=== PATIENT | male | born 1995 | race Caucasian/White ===

== ENCOUNTER 2017-05-04 20:48 | Emergency (ER) | payer BC ==
[2017-05-04 20:58] VITALS: BP 141/92
[2017-05-04] MEDS ORDERED: Acetaminophen 325 MG Tab PO ONE (21:20)
--- NOTE | 2017-05-04 21:23 | EDM.PDOC ---
ED HPI GENERAL MEDICAL PROBLEM - General Chief Complaint: Burn Stated Complaint: BURNED FINGER ON LT HAND Time Seen by Provider: 05/04/17 21:02 Source of Information: Reports: Patient, RN Notes Reviewed - History of Present Illness INITIAL COMMENTS - FREE TEXT/NARRATIVE: 21-year-old male suffered burn injury to his distal left index finger. He accidentally touched a hot muffler which apparently was attached to a motor running some type of mixer at work. Has a lot of pain. He did not know how to manage this injury and therefore presents to the ED seeking evaluation and advice. His last tetanus immunization would have been about 8 years ago. Other area of injury. Left Hand Pain Score (Numeric/FACES): 5 - Related Data Allergies Allergy/AdvReac Type Severity Reaction Status Date / Time Penicillins Allergy Hives Verified 05/04/17 20:55 Home Meds: Home Meds . [No Known Home Meds] 05/04/17 [History] Past Medical History - Past Health History Medical/Surgical History: Denies Medical/Surgical History Social & Family History - Recreational Drug Use Recreational Drug Use: No Review of Systems - Review of Systems Review Of Systems: See Below Constitutional: Reports: No Symptoms Eyes: Reports: No Symptoms Mouth/Throat: Reports: No Symptoms Respiratory: Reports: No Symptoms Cardiovascular: Denies: Chest Pain GI/Abdominal: Denies: Abdominal Pain, Nausea, Vomiting Musculoskeletal: Reports: Other (Burn injury distal left index finger) Skin: Reports: Other (Blistering area of burn injury distal left finger) Neurological: Denies: Numbness, Tingling ED EXAM, GENERAL - Physical Exam Exam: See Below General Appearance: Alert, No Apparent Distress Head: Atraumatic Neck: Supple Respiratory/Chest: No Respiratory Distress Extremities: Other (There is a small 0.5 x 1.5 cm area of burn injury distal left index finger with localized vesiculation, sensation to touch is intact. No visible injury beyond the border of vesicular injury.) Neurological: No Motor/Sensory Deficits Course - Vital Signs Last Recorded V/S: Last Vital Signs Temp 97.6 F 05/04/17 20:55 Pulse 97 05/04/17 20:55 Resp 15 05/04/17 20:55 BP 141/92 H 05/04/17 20:55 Pulse Ox 97 05/04/17 20:55 - Orders/Labs/Meds Meds: Medications Discontinued Medications Generic Name Dose Route Start Last Admin Trade Name Sal PRN Reason Stop Dose Admin Acetaminophen 975 mg 05/04/17 21:20 05/04/17 21:27 Tylenol PO 05/04/17 21:21 975 mg NOW ONE Administration - Re-Assessments/Exams Free Text/Narrative Re-Assessment/Exam: 05/05/17 04:46 This is a second-degree injury. Antibiotic ointment and simple dressing has been applied. Departure - Departure Time of Disposition: 21:30 Disposition: Home, Self-Care 01 Condition: Fair Clinical Impression: Burn of finger Qualifiers: Encounter type: initial encounter Laterality: right Burn degree: partial thickness (2nd degree) Qualified Code(s): T23.221A - Burn of second degree of single right finger (nail) except thumb, initial encounter - Discharge Information Instructions: Burn Care, [id number] Referrals: PCP,None [Primary Care Provider] - Forms: ED Department Discharge Additional Instructions: change dressing once or twice daily, antibiotic ointment with each dressing change, alternate Tylenol and Advil or ibuprofen as needed for discomfort, have rechecked any sign of infection
== END 2017-05-04 21:50 | disposition home or self-care (01) ==
LOC: JD.ED 20:48
DX: T23.221A Burn of second degree of single right finger (nail) except thumb, initial encounter (principal); Z88.0 Allergy status to penicillin; X19.XXXA Contact with other heat and hot substances, initial encounter
CPT/HCPCS: 16020; 99283; A9270; 99282